=== PATIENT | male | born 1995 | race Caucasian/White ===

== ENCOUNTER 2016-06-23 13:07 | Emergency (ER) | payer BC ==
[2016-06-23 13:14] VITALS: BP 134/65
--- NOTE | 2016-06-23 13:27 | UC ---
Truncal Trauma HPI - HPI Summary HPI Summary: he fell down hill and a sand bag landed on top of his right hand today. his right hand is swollen and bruised. [ End ] - History Of Current Complaint Chief Complaint: UCUpperExtremity Stated Complaint: RIGHT HAND INJURY Time Seen by Provider: 06/23/16 13:22 Hx Obtained From: Patient Onset/Duration: Sudden Onset Onset Of Pain: Immediate Severity Initially: Moderate Severity Currently: Moderate Mechanism Of Injury: Blunt Trauma Aggravating Factor(s): Movement Alleviating factor(s): Rest Associated Signs And Symptoms: Positive: Negative - Allergies/Home Medications Allergies/Adverse Reactions: Allergies Allergy/AdvReac Type Severity Reaction Status Date / Time No Known Allergies Allergy Verified 06/23/16 13:15 Home Medications: Home Medications NK [No Home Medications Reported] 06/23/16 [History Confirmed 06/23/16] PMH/Surg Hx/FS Hx/Imm Hx Previously Healthy: Yes Endocrine History Of: Denies: Diabetes Cardiovascular History Of: Denies: Cardiac Disorders Neurological History Of: Denies: CVA - Surgical History Surgical History: Yes Surgery Procedure, Year, and Place: left shoulder - Family History Known Family History: Positive: None - Social History Occupation: Employed Full-time Lives: With Family Alcohol Use: Occasionally Substance Use Type: None Smoking Status (MU): Never Smoked Tobacco - Immunization History Most Recent Tetanus Shot: unkown Review of Systems Constitutional: Negative Skin: Negative Eyes: Negative ENT: Negative Respiratory: Negative Cardiovascular: Negative Gastrointestinal: Negative Genitourinary: Negative Motor: Negative Neurovascular: Negative Musculoskeletal: Arthralgia Neurological: Negative Psychological: Negative All Other Systems Reviewed And Are Negative: Yes Physical Exam Triage Information Reviewed: Yes Appearance: Well-Appearing, No Pain Distress, Well-Nourished Vital Signs: Initial Vital Signs Temp 97.9 F 06/23/16 13:10 Pulse 100 06/23/16 13:10 Resp 16 06/23/16 13:10 BP 134/65 06/23/16 13:10 Pulse Ox 95 06/23/16 13:10 Vital Signs Reviewed: Yes Eye Exam: Normal Neck: Positive: 1 Respiratory Exam: Normal Cardiovascular Exam: Normal Musculoskeletal Exam: Normal Musculoskeletal: Positive: Strength Intact, ROM Limited @ - due to swelling, Other: - right hand swollen -- see diagram, cap refill < 3 sec, peripheral pulses brisk. skin intact with light bruising starting. 1x1 cm hematoma Neurological Exam: Normal Psychological Exam: Normal Skin Exam: Normal Truncal Trauma Course/Dx - Course Course Of Treatment: Xray shows no fracture. Treat as contusion and discusse care. If Sx not improved return to office - Differential Dx/Diagnosis Provider Diagnoses: Hand contusion Right Discharge - Discharge Plan Condition: Good Disposition: HOME Patient Education Materials: Contusion in Adults (ED) Referrals: Non Staff,Doctor [Primary Care Provider] - If Needed Images Hands: 1 - swelling and mild tenderness to palpation
--- NOTE | 2016-06-23 13:47 | RAD ---
INDICATION: Right hand injury. TECHNIQUE: 4 views of the right hand were obtained. FINDINGS: Soft tissue swelling is noted dorsal to the metacarpal bones. The bones are in normal alignment. No fracture is seen. Joint spaces appear maintained. IMPRESSION: SOFT TISSUE SWELLING, NO FRACTURE IS SEEN.
== END 2016-06-23 14:04 | disposition home or self-care (01) ==
LOC: UCCORT 13:07
DX: S60.221A Contusion of right hand, initial encounter (principal); W22.8XXA Striking against or struck by other objects, initial encounter; Y93.9 Activity, unspecified; Y92.9 Unspecified place or not applicable
CPT/HCPCS: 99212; G0463